=== PATIENT | male | born 1960 | race Caucasian/White ===

== ENCOUNTER 2025-05-26 12:51 | Day surgery (SDC) | payer BC ==
[~2025-05-26] VITALS: Ht 177.8 cm; Wt 96.0 kg
[~2025-05-26 12:51] MED LIST: ASPI81CH PO; METO25ER PO; METO50 PO; Prinivil10 MG PO
[2025-05-26] MEDS ORDERED: LOSA25 (13:16)
== END 2025-05-26 14:51 | disposition home or self-care (01) ==
LOC: ORSCSDS 12:51
PROVIDERS: Specialist
PROC: 0DBL8ZX Excision of Transverse Colon, Via Natural or Artificial Opening Endoscopic, Diagnostic (ICD-10-PCS; principal; 2025-05-26 14:15)
PROC: 0DBK8ZX Excision of Ascending Colon, Via Natural or Artificial Opening Endoscopic, Diagnostic (ICD-10-PCS; principal; 2025-05-26 14:15)
DX: Z12.11 Encounter for screening for malignant neoplasm of colon (principal); D12.2 Benign neoplasm of ascending colon; D12.3 Benign neoplasm of transverse colon; K57.30 Diverticulosis of large intestine without perforation or abscess without bleeding; K64.8 Other hemorrhoids; Z85.46 Personal history of malignant neoplasm of prostate; I10 Essential (primary) hypertension; I48.91 Unspecified atrial fibrillation; Z79.899 Other long term (current) drug therapy
CPT/HCPCS: 88305; J2704; J7120